=== PATIENT | female | born 1940 | race Caucasian/White ===

== ENCOUNTER → 2018-03-18 | Outpatient (CLI) | payer MEDICARE, BC ==
[~2018-03-18] MED LIST: AMIT-104 PO; AMLO-99 PO; CALC500T6 PO; CETI-176 PO; CHOL10005 PO; HYDR12.556 PO; LEVO-3 PO; LISI-349 PO; NIAC500T85 PO
--- NOTE | 2018-03-18 12:35 | RADIOLOGY IMAGING REPORT ---
FACILITY: [facility] - [place] PATIENT NAME: Kassie Mchugh : 1940 MR: [id number] V: [id number] EXAM DATE: ORDERING PHYSICIAN: RON WESTBROOK TECHNOLOGIST: Location: [facility] - [place] Patient: Kassie Mchugh : 1940 Visit/Account:[id number] Date of Sevice: 03/18/2018 DEXA Scan Clinical history: Osteopenia. Comparison: DEXA scan from 01/14/2017. LUMBAR SPINE: The bone mineral density (BMD) measured from L1-L4 correlates with a Z-score 1.4 and a T-score of -0 .6 which is normal as defined by the World Health Organization. The corresponding risk of fracture i n the lumbar spine is Not increased compared with a young adult reference population. This value has decreased by 0.1 % since the prior study. More than 5% change is considered significant. HIP: Bone mineral density (BMD) measured in the left femoral neck region correlates with a Z-score 0.9 and a T-score of -1.3 which is osteopenia as defined by the World Health Organization. The correspond ing risk of fracture in the hip is increased compared with a young adult reference population. The to carmine hip value has decreased by 0.5 % since the prior study. More than 5% change is considered signif icant. Bone mineral density (BMD) measured in the Femoral Neck region measures 0.856 g/cm2. IMPRESSION: 1. Lumbar spine: Normal. There has been mild decreased in the bone mineral density since the previo us exam. 2. Left femoral neck region: Osteopenia. There has been mild decrease in the bone mineral density o f the total hip since the previous exam. 3. Femoral Neck: Bone Mineral Density is 0.856 g/cm2 The next DEXA scan of this patient should include the following sites: L1-L4 and the left hip. FRAX? WHO Fracture Risk Assessment Tool link: <http://www.shef.ac.uk/FRAX/tool.jsp?locationValue=9> PLEASE NOTE: 1) The World Health Organization defines low BMD as follows: T-score Normal > -1 Osteopenia < -1 and > -2.5 Osteoporosis < -2.5 without fractures Established osteoporosis < -2.5 with fractures 2) In general, you may wish to consider: Diagnosis Treatment Follow-up DEXA Normal BMD Prevention 2-3 years Osteopenia Prevention/therapy 1-2 years Osteoporosis Therapy Yearly 3) Fracture risk estimated from the T-score is more accurate for vertebral fractures (often spontane ous) than for hip fractures. Report Dictated By: Venu Cedeno at 03/18/2018 12:29 PM Report E-Signed By: Venu Cedeno at 03/18/2018 12:31 PM WSN:[id number]
--- NOTE | 2018-03-18 15:55 | RADIOLOGY IMAGING REPORT ---
FACILITY: [facility] - [place] PATIENT NAME: PAWAN CLARK : [id number] MR: [id number] V: [id number] EXAM DATE: ORDERING PHYSICIAN: RON WESTBROOK TECHNOLOGIST: Morena Navarro PROCEDURE:BILATERAL DIGITAL SCREENING MAMMOGRAM WITH CAD ASSISTED INTERPRETATION & 3D TOMOSYNTHESIS COMPARISON:Prior mammograms 01/14/17, 09/27/12, 06/11/11 INDICATIONS:SCREENING FINDINGS: Moderately heterogeneous fibroglandular tissue is seen throughout the breasts. The parenchymal pattern has remained stable allowing for difference in mammographic technique & patient positioning. There is no evidence of malignant appearing mass, malignant appearing calcification or other secondary sign of malignancy in either breast. DIAGNOSTIC CATEGORY 1--NEGATIVE. RECOMMENDATIONS: ROUTINE MAMMOGRAM AND CLINICAL EVALUATION. IMPRESSION: BIRADS 1: Negative. No significant abnormality is seen. Dictated by: Donna Jarrett M.D. on 03/18/2018 at 13:51 Transcribed by: MENDY on 03/18/2018 at 14:34 Approved by: Donna Jarrett M.D. on 03/18/2018 at 15:54 [facility]
== END ==
LOC: MAMO 02-11 00:48
PROVIDERS: ATTEND Family Medicine
DX: Z13.820 Encounter for screening for osteoporosis (principal); Z12.31 Encounter for screening mammogram for malignant neoplasm of breast; M85.88 Other specified disorders of bone density and structure, other site
CPT/HCPCS: 77063; 77067; 77080